=== PATIENT | male | born 1955 | race African-American/Black ===

== ENCOUNTER 2020-07-21 02:25 | Observation (INO) | payer MEDICARE, MEDICAID ==
[2020-07-21 02:59] LABS: #Basophils 0.2 10x3/uL (0.0-0.2); #Eosinphils 0.3 10x3/uL (0.0-0.5); #Monocytes 1.1 10x3/uL (0.0-1.1); %Basophils 1.5 % (0.0-2.0); %Eosinophils 3.2 % (0.0-6.0); %Lymphocytes 34.9 % (18.0-47.0); %Monocytes 10.4 % (0.0-10.0); %Neutrophils 49.4 % (40.0-75.0); Hemoglobin 11.6 g/dL (13.5-17.5); Mean Corpuscular HGB CONC 31.4 g/dL (32.0-36.0); Mean Corpuscular Hemoglobin 25.4 pg (27.0-33.0); Mean Corpuscular Volume 80.7 fl (81.2-95.1); Platelet Count 254 10x3/uL (150-450); RBC Distribution Width 15.4 % (11.5-14.5); Red Blood Cell (RBC) Count 4.57 10x6/uL (4.32-5.72); White Blood Cell (WBC) Count 10.1 10x3/uL (3.5-10.5)
[2020-07-21 03:11] LABS: ALT (SGPT) 22 U/L (8-55); AST (SGOT) 15 U/L (5-34); Albumin 4.1 g/dL (3.4-4.8); Alkaline Phosphatase 54 U/L (40-110); Anion Gap 13 mmol/L (10-20); BUN (Urea Nitrogen) 10 mg/dL (8.4-25.7); Bilirubin, Total 0.1 mg/dL (0.2-1.2); Calc. Creatinine Clearance 0 mL/min (70-130); Calcium 8.9 mg/dL (7.8-10.44); Carbon Dioxide 24 mmol/L (23-31); Chloride 104 mmol/L (98-107); Globulin 2.6 g/dL (2.4-3.5); Glucose 246 mg/dL (80-115); Potassium 3.6 mmol/L (3.5-5.1); Protein, Total 6.7 g/dL (5.8-8.1); Sodium 137 mmol/L (136-145)
[2020-07-21] MEDS ORDERED: Morphine 4 MG/ML VIAL ONE (03:41)
[2020-07-21] MEDS ORDERED: Ondansetron PF 4 MG/2 ML Vial ONE (03:41)
[2020-07-21] MEDS ORDERED: Zolpidem Tartrate 5 MG TAB PO PRN (03:54)
[2020-07-21] MEDS ORDERED: Calcium Carbonate 500 MG ChewTAB PO PRN (03:54)
[2020-07-21] MEDS ORDERED: Senokot S 8.6-50 MG TAB PO PRN (03:54)
[2020-07-21] MEDS ORDERED: Ondansetron PF 4 MG/2 ML Vial IVP PRN (03:54)
[2020-07-21] MEDS ORDERED: Acetaminophen 325 MG TAB PO PRN (03:54)
[2020-07-21] MEDS ORDERED: Guaifenesin DM 100-10/5 ML UDCUP PO PRN (03:54)
[2020-07-21] MEDS ORDERED: Dextrose 50% Abboject 50 ML SYRINGE SLOW IVP PRN (03:54)
[2020-07-21] MEDS ORDERED: Dextrose 5% in Water 1,000 ML IV PRN (03:54)
[2020-07-21 03:57] LABS: SARS-CoV-2 NAA Rapid Test Not Detected (NotDetected)
[2020-07-21] MEDS ORDERED: Labetalol HCl 100 MG/20 ML VIAL SLOW IVP PRN (03:59)
[2020-07-21] MEDS ORDERED: Mometasone 100 MCG/Formoterol 5 MCG 120 PUFF INHALER INH SCH (06:30)
[2020-07-21] MEDS: HYDROcodone/Acetaminophen 5/325 mg Tablet PO PRN ×4 (07:18→19:26)
[2020-07-21] MEDS: Tamsulosin HCl 0.4 MG CAP PO SCH (07:19)
[2020-07-21] MEDS: Aspirin 81 mg Enteric Coated Tablet PO SCH (08:00)
[2020-07-21] MEDS: Spironolactone 25 MG TAB PO SCH (08:00)
[2020-07-21] MEDS: Enoxaparin Sodium 40 MG/0.4 ML SYRINGE SC SCH (08:00)
[2020-07-21] MEDS: Carvedilol 25 MG TAB PO SCH ×2 (08:00→20:40)
[2020-07-21] MEDS: Losartan 25 MG TAB PO SCH (08:00)
[2020-07-21] MEDS: Furosemide 40 MG TAB PO SCH ×2 (08:01→20:40)
[2020-07-21] MEDS: Finasteride 5 MG TAB PO SCH (08:01)
[2020-07-21] MEDS ORDERED: NIFEdipine XL 90 MG TAB PO SCH (09:00)
[2020-07-21] MEDS ORDERED: FLU VACC QS2020-21(65YR UP)/PF 240 MCG/0.7 ML SYRINGE IM ONE (09:00)
[2020-07-21] MEDS ORDERED: Isosorbide Dinitrate 20 MG TAB PO SCH (09:00)
[2020-07-21] MEDS: Isosorbide Dinitrate 10 MG TAB PO SCH ×2 (15:15→20:40)
[2020-07-21] MEDS ORDERED: Mometasone/Formoterol 60 PUFF AER INH SCH (18:30)
[2020-07-21] MEDS: Mometasone/Formoterol 60 PUFF AER INH SCH (19:03)
[2020-07-21] MEDS ORDERED: Atorvastatin Calcium 20 MG TAB PO SCH (21:00)
[2020-07-21] MEDS ORDERED: Lantus 1000 UNITS/10 ML VIAL SC SCH (21:00)
[2020-07-21] MEDS ORDERED: LEVEMIR 100 UNIT/ML SC SCH (21:00)
[2020-07-22] MEDS: HumaLOG 300 UNITS/3 ML VIAL SC PRN ×2 (00:27→06:35)
[2020-07-22] MEDS: HYDROcodone/Acetaminophen 5/325 mg Tablet PO PRN ×3 (00:38→09:00)
[2020-07-22 06:05] VITALS: BMI 39.3
[2020-07-22 06:30] LABS: #Basophils 0.1 10x3/uL (0.0-0.2); #Eosinphils 0.4 10x3/uL (0.0-0.5); #Neutrophils 4.8 10x3/uL (1.5-8.4); %Basophils 1.1 % (0.0-2.0); %Eosinophils 4.2 % (0.0-6.0); %Lymphocytes 30.2 % (18.0-47.0); %Neutrophils 52.7 % (40.0-75.0); Hemoglobin 11.5 g/dL (13.5-17.5); Mean Corpuscular HGB CONC 31.8 g/dL (32.0-36.0); Mean Corpuscular Hemoglobin 25.4 pg (27.0-33.0); Mean Corpuscular Volume 80.1 fl (81.2-95.1); Mean Platelet Volume 10.8 fl (7.4-10.4); Platelet Count 264 10x3/uL (150-450); RBC Distribution Width 15.2 % (11.5-14.5); Red Blood Cell (RBC) Count 4.52 10x6/uL (4.32-5.72); White Blood Cell (WBC) Count 9.2 10x3/uL (3.5-10.5)
[2020-07-22 06:51] LABS: Anion Gap 18 mmol/L (10-20); BUN (Urea Nitrogen) 14 mg/dL (8.4-25.7); Calc. Creatinine Clearance 134 mL/min (70-130); Carbon Dioxide 22 mmol/L (23-31); Cardiac Risk 4.5 (Less than 4.5); Chloride 101 mmol/L (98-107); Cholesterol 171 mg/dl (< 200 Desired); Glucose 151 mg/dL (80-115); HDL Cholesterol 38 mg/dL (>60 Neg Risk); LDL Cholesterol, Calculated 79 mg/dL; Potassium 3.9 mmol/L (3.5-5.1); Sodium 137 mmol/L (136-145); Triglycerides 269 mg/dL (Less than 150)
[2020-07-22] MEDS: Mometasone/Formoterol 60 PUFF AER INH SCH (07:50)
[2020-07-22] MEDS: Losartan 25 MG TAB PO SCH (09:00)
[2020-07-22] MEDS: Isosorbide Dinitrate 10 MG TAB PO SCH ×2 (09:00→15:05)
[2020-07-22] MEDS: Furosemide 40 MG TAB PO SCH (09:00)
[2020-07-22] MEDS: Enoxaparin Sodium 40 MG/0.4 ML SYRINGE SC SCH (09:00)
[2020-07-22] MEDS: Spironolactone 25 MG TAB PO SCH (09:00)
[2020-07-22] MEDS ORDERED: NIFEdipine XL 30 MG TAB PO SCH (09:00)
[2020-07-22] MEDS: Finasteride 5 MG TAB PO SCH (09:00)
[2020-07-22] MEDS: Aspirin 81 mg Enteric Coated Tablet PO SCH (09:00)
[2020-07-22] MEDS: Carvedilol 25 MG TAB PO SCH (09:00)
[2020-07-22] MEDS: Tamsulosin HCl 0.4 MG CAP PO SCH (09:36)
[2020-07-22 12:12] LABS: Hemoglobin A1c 8.7 % (4.0-6.0)
[2020-07-22 12:25] VITALS: BP 168/86; TEMP 98.2
[2020-07-22] MEDS ORDERED: hydrALAZINE 25 MG TAB PO SCH (21:00)
== END 2020-07-22 17:45 | disposition left against medical advice (07) ==
LOC: CSHERS 02:25 → CSHTELE 05:02
PROVIDERS: ADMIT Student in an Organized Health Care Education/Training Program; ATTEND Family Medicine
DX: R07.89 Other chest pain (principal); I10 Essential (primary) hypertension; F17.210 Nicotine dependence, cigarettes, uncomplicated; Z96.651 Presence of right artificial knee joint; I25.10 Atherosclerotic heart disease of native coronary artery without angina pectoris; J44.9 Chronic obstructive pulmonary disease, unspecified; E11.9 Type 2 diabetes mellitus without complications; E78.5 Hyperlipidemia, unspecified; G47.33 Obstructive sleep apnea (adult) (pediatric); Z79.899 Other long term (current) drug therapy; Z79.4 Long term (current) use of insulin; N28.89 Other specified disorders of kidney and ureter; Z20.822 Contact with and (suspected) exposure to COVID-19
CPT/HCPCS: 71045; 71275; 74174; 80048; 80053; 80061; 82962 ×2; 83036; 83880; 84484 ×2; 85025 ×2; 85379; 93005; 93306; 94640 ×2; 96372 ×2; 96374; 96375; 99285; G0378 ×3; U0002; 36416; 93010; J1650; J1815; J2270; J2405

== ENCOUNTER 2020-08-16 20:33 | Inpatient (IN) | payer MEDICARE, MEDICAID ==
[2020-08-16 21:31] LABS: #Basophils 0.1 10x3/uL (0.0-0.2); #Eosinphils 0.3 10x3/uL (0.0-0.5); #Monocytes 1.1 10x3/uL (0.0-1.1); #Neutrophils 6.6 10x3/uL (1.5-8.4); %Basophils 0.7 % (0.0-2.0); %Eosinophils 2.8 % (0.0-6.0); %Lymphocytes 28.8 % (18.0-47.0); %Monocytes 9.6 % (0.0-10.0); %Neutrophils 57.6 % (40.0-75.0); Hemoglobin 11.4 g/dL (13.5-17.5); Mean Corpuscular Hemoglobin 25.7 pg (27.0-33.0); Mean Corpuscular Volume 80.2 fl (81.2-95.1); Mean Platelet Volume 9.9 fl (7.4-10.4); Platelet Count 238 10x3/uL (150-450); RBC Distribution Width 15.3 % (11.5-14.5); Red Blood Cell (RBC) Count 4.44 10x6/uL (4.32-5.72); White Blood Cell (WBC) Count 11.4 10x3/uL (3.5-10.5)
[2020-08-16 21:45] LABS: ALT (SGPT) 28 U/L (8-55); AST (SGOT) 16 U/L (5-34); Albumin 4.3 g/dL (3.4-4.8); Alkaline Phosphatase 62 U/L (40-110); Anion Gap 15 mmol/L (10-20); BUN (Urea Nitrogen) 23 mg/dL (8.4-25.7); Bilirubin, Total 0.2 mg/dL (0.2-1.2); Calc. Creatinine Clearance 0 mL/min (70-130); Calcium 8.7 mg/dL (7.8-10.44); Carbon Dioxide 24 mmol/L (23-31); Chloride 102 mmol/L (98-107); Globulin 2.9 g/dL (2.4-3.5); Glucose 139 mg/dL (80-115); Potassium 3.5 mmol/L (3.5-5.1); Protein, Total 7.2 g/dL (5.8-8.1); Sodium 137 mmol/L (136-145)
[2020-08-16] MEDS ORDERED: Furosemide 100 MG/10 ML VIAL ONE (22:46)
[2020-08-17] MEDS ORDERED: Milk Of Magnesia 30 ML UDCUP PO PRN (00:09)
[2020-08-17] MEDS ORDERED: Ondansetron PF 4 MG/2 ML Vial IVP PRN (00:09)
[2020-08-17] MEDS ORDERED: Ondansetron ODT 4 MG TAB PO PRN (00:09)
[2020-08-17] MEDS ORDERED: Acetaminophen 325 MG/10.15 ML UDCUP PO PRN (00:09)
[2020-08-17 01:44] VITALS: BMI 41.9
[2020-08-17] MEDS: Tamsulosin HCl 0.4 MG CAP PO SCH (05:47)
[2020-08-17] MEDS ORDERED: Mometasone 100 MCG/Formoterol 5 MCG 120 PUFF INHALER INH SCH (06:30)
[2020-08-17 07:09] LABS: #Basophils 0.1 10x3/uL (0.0-0.2); #Eosinphils 0.2 10x3/uL (0.0-0.5); #Monocytes 0.9 10x3/uL (0.0-1.1); #Neutrophils 5.1 10x3/uL (1.5-8.4); %Basophils 1.1 % (0.0-2.0); %Eosinophils 2.4 % (0.0-6.0); %Lymphocytes 29.9 % (18.0-47.0); %Monocytes 10.1 % (0.0-10.0); %Neutrophils 55.8 % (40.0-75.0); Hemoglobin 11.5 g/dL (13.5-17.5); Mean Corpuscular HGB CONC 31.1 g/dL (32.0-36.0); Mean Corpuscular Hemoglobin 25.4 pg (27.0-33.0); Mean Corpuscular Volume 81.9 fl (81.2-95.1); Mean Platelet Volume 10.6 fl (7.4-10.4); Platelet Count 232 10x3/uL (150-450); RBC Distribution Width 15.3 % (11.5-14.5); Red Blood Cell (RBC) Count 4.52 10x6/uL (4.32-5.72); White Blood Cell (WBC) Count 9.2 10x3/uL (3.5-10.5)
[2020-08-17 07:26] LABS: Anion Gap 15 mmol/L (10-20); BUN (Urea Nitrogen) 20 mg/dL (8.4-25.7); Calc. Creatinine Clearance 97 mL/min (70-130); Calcium 8.8 mg/dL (7.8-10.44); Carbon Dioxide 23 mmol/L (23-31); Chloride 104 mmol/L (98-107); Glucose 261 mg/dL (80-115); Magnesium 1.8 mg/dL (1.6-2.6); Sodium 138 mmol/L (136-145)
[2020-08-17 07:32] LABS: PTT 32.8 sec (22.0-33.0); Prothrombin Time 10.3 sec (9.5-12.1)
[2020-08-17] MEDS ORDERED: NIFEdipine XL 90 MG TAB PO SCH (09:00)
[2020-08-17] MEDS ORDERED: Carvedilol 25 MG TAB PO SCH (09:00)
[2020-08-17] MEDS ORDERED: Isosorbide Dinitrate 20 MG TAB PO SCH (09:00)
[2020-08-17] MEDS ORDERED: FLU VACC QS2020-21(65YR UP)/PF 240 MCG/0.7 ML SYRINGE IM ONE (09:00)
[2020-08-17] MEDS ORDERED: Furosemide 100 MG/10 ML VIAL SLOW IVP SCH (09:00)
[2020-08-17] MEDS ORDERED: Isosorbide Dinitrate 10 MG TAB PO SCH (10:30)
[2020-08-17] MEDS ORDERED: NIFEdipine XL 30 MG TAB PO SCH (10:30)
[2020-08-17] MEDS ORDERED: Nicotine 14 MG PATCH TD SCH (10:30)
[2020-08-17] MEDS: Losartan 25 MG TAB PO SCH (10:40)
[2020-08-17] MEDS: hydrALAZINE 25 MG TAB PO SCH ×3 (10:40→21:36)
[2020-08-17] MEDS: traMADol HCl 50 MG TAB PO PRN ×2 (10:41→16:12)
[2020-08-17] MEDS: Carvedilol 25 MG TAB PO SCH ×2 (10:41→16:13)
[2020-08-17] MEDS: Spironolactone 25 MG TAB PO SCH ×2 (10:41→16:41)
[2020-08-17] MEDS: metFORMIN 500 MG TAB PO SCH ×2 (10:41→16:13)
[2020-08-17] MEDS: Finasteride 5 MG TAB PO SCH (10:42)
[2020-08-17] MEDS: Enoxaparin Sodium 40 MG/0.4 ML SYRINGE SC SCH (10:42)
[2020-08-17] MEDS: HumaLOG 300 UNITS/3 ML VIAL SC SCH ×3 (10:43→16:12)
[2020-08-17] MEDS: Albumin 25% 25 GM/100 ML BOT IVPB SCH ×2 (13:10→18:25)
[2020-08-17] MEDS: traZODone HCl 50 MG TAB PO SCH ×2 (16:12→21:35)
[2020-08-17] MEDS: Furosemide 100 MG/10 ML VIAL SLOW IVP SCH (16:13)
[2020-08-17] MEDS: Isosorbide Dinitrate 10 MG TAB PO SCH ×2 (16:17→21:34)
[2020-08-17] MEDS: Mometasone/Formoterol 60 PUFF AER INH SCH (19:50)
[2020-08-17] MEDS ORDERED: Lantus 1000 UNITS/10 ML VIAL SC SCH (21:00)
[2020-08-17 21:03] LABS: SARS-CoV-2 PCR by NAA Not Detected (NotDetected)
[2020-08-18] MEDS: Albumin 25% 25 GM/100 ML BOT IVPB SCH ×2 (00:48→06:35)
[2020-08-18] MEDS: Furosemide 100 MG/10 ML VIAL SLOW IVP SCH (06:36)
[2020-08-18] MEDS: traMADol HCl 50 MG TAB PO PRN (07:36)
[2020-08-18] MEDS: Spironolactone 25 MG TAB PO SCH (08:20)
[2020-08-18] MEDS: hydrALAZINE 25 MG TAB PO SCH (08:23)
[2020-08-18] MEDS: metFORMIN 500 MG TAB PO SCH (08:23)
[2020-08-18] MEDS: traZODone HCl 50 MG TAB PO SCH (08:24)
[2020-08-18] MEDS: Isosorbide Dinitrate 10 MG TAB PO SCH (08:24)
[2020-08-18] MEDS: Finasteride 5 MG TAB PO SCH (08:24)
[2020-08-18] MEDS: Losartan 25 MG TAB PO SCH (08:24)
[2020-08-18] MEDS: HumaLOG 300 UNITS/3 ML VIAL SC SCH (08:25)
[2020-08-18] MEDS: Enoxaparin Sodium 40 MG/0.4 ML SYRINGE SC SCH (08:25)
[2020-08-18] MEDS: Carvedilol 25 MG TAB PO SCH (08:25)
[2020-08-18] MEDS: Tamsulosin HCl 0.4 MG CAP PO SCH (08:38)
[2020-08-18] MEDS ORDERED: NIFEdipine XL 30 MG TAB PO SCH (09:00)
[2020-08-18] MEDS: Mometasone/Formoterol 60 PUFF AER INH SCH (09:02)
[2020-08-18 12:35] VITALS: TEMP 98.7
[2020-08-18 14:48] VITALS: BP 134/68
== END 2020-08-18 12:19 | disposition home or self-care (01) | DRG 432 ==
LOC: CSHERS 20:33 → CSHTELE 08-17 00:51
PROVIDERS: ADMIT Family Medicine; ATTEND Family Medicine
DX: K74.69 Other cirrhosis of liver (principal); I50.33 Acute on chronic diastolic (congestive) heart failure; I13.0 Hypertensive heart and chronic kidney disease with heart failure and stage 1 through stage 4 chronic kidney disease, or unspecified chronic kidney disease; Z20.822 Contact with and (suspected) exposure to COVID-19; E11.22 Type 2 diabetes mellitus with diabetic chronic kidney disease; N18.30 Chronic kidney disease, stage 3 unspecified; J43.9 Emphysema, unspecified; E78.5 Hyperlipidemia, unspecified; N40.1 Benign prostatic hyperplasia with lower urinary tract symptoms; R35.0 Frequency of micturition; I25.10 Atherosclerotic heart disease of native coronary artery without angina pectoris; E87.70 Fluid overload, unspecified; Z95.5 Presence of coronary angioplasty implant and graft; Z79.4 Long term (current) use of insulin; Z79.891 Long term (current) use of opiate analgesic; Z79.899 Other long term (current) drug therapy; Z96.653 Presence of artificial knee joint, bilateral; Z87.898 Personal history of other specified conditions; M19.90 Unspecified osteoarthritis, unspecified site; N28.89 Other specified disorders of kidney and ureter; E27.8 Other specified disorders of adrenal gland; F17.210 Nicotine dependence, cigarettes, uncomplicated; Z83.3 Family history of diabetes mellitus; Z82.49 Family history of ischemic heart disease and other diseases of the circulatory system; G47.33 Obstructive sleep apnea (adult) (pediatric)
CPT/HCPCS: 36415; 36416; 71045; 76705; 80048; 80053; 83735; 83880; 85025; 85610; 85730; 87635; 93005; 96374; J1650; J1815; J1940; P9047; U0003; U0005

== ENCOUNTER 2020-10-06 11:15 | Inpatient (IN) | payer MEDICARE, MEDICAID ==
[2020-10-06 14:09] LABS: #Basophils 0.1 10x3/uL (0.0-0.2); #Eosinphils 0.2 10x3/uL (0.0-0.5); #Monocytes 1.5 10x3/uL (0.0-1.1); #Neutrophils 7.4 10x3/uL (1.5-8.4); %Basophils 0.9 % (0.0-2.0); %Eosinophils 1.4 % (0.0-6.0); %Lymphocytes 26.2 % (18.0-47.0); %Monocytes 12.1 % (0.0-10.0); %Neutrophils 58.8 % (40.0-75.0); Hemoglobin 12.2 g/dL (13.5-17.5); Mean Corpuscular HGB CONC 31.8 g/dL (32.0-36.0); Mean Corpuscular Volume 78.7 fl (81.2-95.1); Platelet Count 313 10x3/uL (150-450); RBC Distribution Width 15.8 % (11.5-14.5); Red Blood Cell (RBC) Count 4.88 10x6/uL (4.32-5.72); White Blood Cell (WBC) Count 12.5 10x3/uL (3.5-10.5)
[2020-10-06 14:16] LABS: ALT (SGPT) 30 U/L (8-55); AST (SGOT) 21 U/L (5-34); Albumin 4.5 g/dL (3.4-4.8); Alkaline Phosphatase 63 U/L (40-110); Anion Gap 18 mmol/L (10-20); BUN (Urea Nitrogen) 42 mg/dL (8.4-25.7); Bilirubin, Total 0.1 mg/dL (0.2-1.2); Calc. Creatinine Clearance 0 mL/min (70-130); Calcium 11.2 mg/dL (7.8-10.44); Carbon Dioxide 23 mmol/L (23-31); Chloride 103 mmol/L (98-107); Globulin 3.1 g/dL (2.4-3.5); Glucose 136 mg/dL (80-115); Potassium 4.4 mmol/L (3.5-5.1); Protein, Total 7.6 g/dL (5.8-8.1); Sodium 140 mmol/L (136-145)
[2020-10-06 14:37] LABS: Bilirubin Neg (Negative); Blood, Urine Negative (Negative); Clarity Clear (Clear); Glucose, Urine (Dipstick) Normal (Negative); Ketone, Urine Negative (Negative); Leukocyte Negative (Negative); Nitrite Negative (Negative); Protein, Urine (Dipstick) Negative (Neg-Trace); Urobilinogen Normal mg/dL (Less than 2)
[2020-10-06] MEDS ORDERED: Senokot S 8.6-50 MG TAB PO PRN (17:21)
[2020-10-06] MEDS ORDERED: HYDROcodone/Acetaminophen 5/325 mg Tablet PO PRN (17:21)
[2020-10-06] MEDS ORDERED: Acetaminophen 325 MG TAB PO PRN (17:21)
[2020-10-06] MEDS ORDERED: Ondansetron PF 4 MG/2 ML Vial IVP PRN (17:21)
[2020-10-06] MEDS ORDERED: hydrALAZINE 20 MG/ML VIAL SLOW IVP PRN (17:26)
[2020-10-06] MEDS ORDERED: FORMOTEROL FUMARATE NEB PRN (17:35)
[2020-10-06] MEDS ORDERED: [UNRECOGNIZED DRUG - OTHER] NEB PRN (17:35)
[2020-10-06] MEDS ORDERED: traMADol HCl 50 MG TAB PO PRN (17:35)
[2020-10-06] MEDS ORDERED: BUDESONIDE NEB PRN (17:35)
[2020-10-06] MEDS ORDERED: Dextrose 50% Abboject 50 ML SYRINGE SLOW IVP PRN (17:37)
[2020-10-06] MEDS ORDERED: Dextrose 5% in Water 1,000 ML IV PRN (17:37)
[2020-10-06] MEDS ORDERED: Albuterol Sulfate 2.5 mg/3 ml Neb NEB PRN (17:50)
[2020-10-06] MEDS ORDERED: Morphine 2 MG/ML VIAL SLOW IVP SCH (18:30)
[2020-10-06] MEDS: Sodium Chloride 0.9% 1,000 ML IV SCH (18:59)
[2020-10-06 19:29] VITALS: BMI 40.9
[2020-10-06] MEDS ORDERED: Isosorbide Dinitrate 20 MG TAB PO SCH (21:00)
[2020-10-06] MEDS: Isosorbide Dinitrate 10 MG TAB PO SCH (23:15)
[2020-10-06] MEDS: Heparin 5,000 UNITS/ML VIAL SC SCH (23:15)
[2020-10-06] MEDS: Lantus 1000 UNITS/10 ML VIAL SC SCH (23:17)
[2020-10-06] MEDS: traZODone HCl 50 MG TAB PO SCH (23:17)
[2020-10-06] MEDS: Carvedilol 25 MG TAB PO SCH (23:17)
[2020-10-06] MEDS: HumaLOG 300 UNITS/3 ML VIAL SC PRN (23:20)
[2020-10-06] MEDS: HYDROcodone/Acetaminophen 5/325 mg Tablet PO PRN (23:47)
[2020-10-07] MEDS: Sodium Chloride 0.9% 1,000 ML IV SCH (03:08)
[2020-10-07] MEDS: Tamsulosin HCl 0.4 MG CAP PO SCH (05:44)
[2020-10-07 07:30] LABS: #Basophils 0.1 10x3/uL (0.0-0.2); #Eosinphils 0.3 10x3/uL (0.0-0.5); #Monocytes 1.1 10x3/uL (0.0-1.1); #Neutrophils 5.8 10x3/uL (1.5-8.4); %Basophils 1.2 % (0.0-2.0); %Eosinophils 2.9 % (0.0-6.0); %Lymphocytes 24.4 % (18.0-47.0); %Monocytes 11.2 % (0.0-10.0); %Neutrophils 59.7 % (40.0-75.0); Hemoglobin 11.6 g/dL (13.5-17.5); Mean Corpuscular HGB CONC 31.6 g/dL (32.0-36.0); Mean Corpuscular Hemoglobin 25.1 pg (27.0-33.0); Mean Corpuscular Volume 79.3 fl (81.2-95.1); Mean Platelet Volume 9.7 fl (7.4-10.4); Platelet Count 298 10x3/uL (150-450); RBC Distribution Width 15.8 % (11.5-14.5); Red Blood Cell (RBC) Count 4.63 10x6/uL (4.32-5.72); White Blood Cell (WBC) Count 9.7 10x3/uL (3.5-10.5)
[2020-10-07 07:57] LABS: Anion Gap 15 mmol/L (10-20)
[2020-10-07 08:05] LABS: ALT (SGPT) 27 U/L (8-55); AST (SGOT) 18 U/L (5-34); Alkaline Phosphatase 51 U/L (40-110); BUN (Urea Nitrogen) 20 mg/dL (8.4-25.7); Bilirubin, Total 0.3 mg/dL (0.2-1.2); Calc. Creatinine Clearance 134 mL/min (70-130); Calcium 9.8 mg/dL (7.8-10.44); Carbon Dioxide 26 mmol/L (23-31); Chloride 104 mmol/L (98-107); Glucose 190 mg/dL (80-115); Sodium 141 mmol/L (136-145)
[2020-10-07] MEDS: traZODone HCl 50 MG TAB PO SCH ×3 (09:47→22:05)
[2020-10-07] MEDS: Isosorbide Dinitrate 10 MG TAB PO SCH ×3 (09:48→21:31)
[2020-10-07] MEDS: Carvedilol 25 MG TAB PO SCH ×2 (09:48→21:31)
[2020-10-07] MEDS: NIFEdipine XL 30 MG TAB PO SCH (09:48)
[2020-10-07] MEDS: Heparin 5,000 UNITS/ML VIAL SC SCH ×3 (09:49→21:31)
[2020-10-07] MEDS: Finasteride 5 MG TAB PO SCH (09:49)
[2020-10-07] MEDS: HYDROcodone/Acetaminophen 5/325 mg Tablet PO PRN ×3 (11:22→21:47)
[2020-10-07] MEDS: HumaLOG 300 UNITS/3 ML VIAL SC PRN ×3 (11:23→21:39)
[2020-10-07 14:25] LABS: SARS-CoV-2 PCR by NAA Not Detected (NotDetected)
[2020-10-07] MEDS ORDERED: hydrALAZINE 20 MG/ML VIAL SLOW IVP PRN (18:58)
[2020-10-07] MEDS: Lantus 1000 UNITS/10 ML VIAL SC SCH (21:39)
[2020-10-08] MEDS: Tamsulosin HCl 0.4 MG CAP PO SCH (04:46)
[2020-10-08 06:48] LABS: #Basophils 0.1 10x3/uL (0.0-0.2); #Eosinphils 0.3 10x3/uL (0.0-0.5); #Monocytes 0.9 10x3/uL (0.0-1.1); #Neutrophils 5.3 10x3/uL (1.5-8.4); %Basophils 1.3 % (0.0-2.0); %Eosinophils 3.6 % (0.0-6.0); %Lymphocytes 29.2 % (18.0-47.0); %Monocytes 9.5 % (0.0-10.0); %Neutrophils 55.6 % (40.0-75.0); Hemoglobin 12.4 g/dL (13.5-17.5); Mean Corpuscular Hemoglobin 25.6 pg (27.0-33.0); Mean Platelet Volume 10.5 fl (7.4-10.4); Platelet Count 308 10x3/uL (150-450); RBC Distribution Width 15.7 % (11.5-14.5); Red Blood Cell (RBC) Count 4.84 10x6/uL (4.32-5.72); White Blood Cell (WBC) Count 9.6 10x3/uL (3.5-10.5)
[2020-10-08 07:12] LABS: ALT (SGPT) 39 U/L (8-55); AST (SGOT) 27 U/L (5-34); Albumin 4.2 g/dL (3.4-4.8); Alkaline Phosphatase 55 U/L (40-110); Anion Gap 15 mmol/L (10-20); BUN (Urea Nitrogen) 13 mg/dL (8.4-25.7); Bilirubin, Total 0.3 mg/dL (0.2-1.2); Calc. Creatinine Clearance 140 mL/min (70-130); Calcium 9.5 mg/dL (7.8-10.44); Carbon Dioxide 24 mmol/L (23-31); Chloride 105 mmol/L (98-107); Globulin 3.3 g/dL (2.4-3.5); Glucose 146 mg/dL (80-115); Potassium 3.9 mmol/L (3.5-5.1); Protein, Total 7.5 g/dL (5.8-8.1); Sodium 140 mmol/L (136-145)
[2020-10-08] MEDS: traZODone HCl 50 MG TAB PO SCH (08:13)
[2020-10-08] MEDS: Carvedilol 25 MG TAB PO SCH (08:13)
[2020-10-08] MEDS: Heparin 5,000 UNITS/ML VIAL SC SCH (08:13)
[2020-10-08] MEDS: NIFEdipine XL 30 MG TAB PO SCH (08:13)
[2020-10-08] MEDS: Finasteride 5 MG TAB PO SCH (08:13)
[2020-10-08] MEDS: Isosorbide Dinitrate 10 MG TAB PO SCH (08:14)
[2020-10-08 11:38] LABS: Hemoglobin A1c 8.7 % (4.0-6.0)
[2020-10-08 12:32] VITALS: BP 136/74; TEMP 98.1
[2020-10-08] MEDS: HumaLOG 300 UNITS/3 ML VIAL SC PRN (12:45)
== END 2020-10-08 12:57 | disposition home or self-care (01) | DRG 683 ==
LOC: CSHERS 11:15 → CSHTELE 15:04
PROVIDERS: ADMIT Internal Medicine; ATTEND Internal Medicine
DX: N17.9 Acute kidney failure, unspecified (principal); I13.0 Hypertensive heart and chronic kidney disease with heart failure and stage 1 through stage 4 chronic kidney disease, or unspecified chronic kidney disease; I50.32 Chronic diastolic (congestive) heart failure; E86.0 Dehydration; N40.0 Benign prostatic hyperplasia without lower urinary tract symptoms; E11.22 Type 2 diabetes mellitus with diabetic chronic kidney disease; N18.9 Chronic kidney disease, unspecified; I25.10 Atherosclerotic heart disease of native coronary artery without angina pectoris; Z95.5 Presence of coronary angioplasty implant and graft; N28.89 Other specified disorders of kidney and ureter; E78.5 Hyperlipidemia, unspecified; J44.9 Chronic obstructive pulmonary disease, unspecified; Z79.4 Long term (current) use of insulin; Z20.822 Contact with and (suspected) exposure to COVID-19
CPT/HCPCS: 36415; 36416; 71045; 74176; 76856; 80053; 81003; 83036; 83880; 84484; 85025; 87635; 93005; 94760; J1644; J1815; J2270; U0003; U0005